=== PATIENT | male | born 1955 | race Caucasian/White ===

== ENCOUNTER 2016-09-02 01:04 | Emergency (ER) | payer BC ==
[2016-09-02 01:20] VITALS: O2SAT 98
[2016-09-02] MEDS ORDERED: ZOFRAN ODT 4 MG PO ONE (01:42)
--- NOTE | 2016-09-02 01:42 | ERPHSYRPT ---
- History of Present Illness Time Seen by Provider: 09/02/16 01:38 Source: patient, family Exam Limitations: no limitations Physician History: pt had brief LOC from hitting back of his head slipping in shower; no blood thinners; tender occiput with swelling and some neck pain with movement; Occurred: just prior to arrival Severity: moderate Head Injury Location: occipital Method of Injury: fell Loss of Consciousness: brief (seconds) Associated Symptoms: nausea Allergies/Adverse Reactions: No Known Drug Allergies Allergy (Unverified 09/02/16 01:42) Home Medications: Metformin HCl 0 mg BID 09/02/16 [History] - Review of Systems Constitutional: No Fever, No Chills Eyes: No Symptoms Ears, Nose, & Throat: No Symptoms Respiratory: No Cough, No Dyspnea Cardiac: No Chest Pain, No Edema, No Syncope Abdominal/Gastrointestinal: No Abdominal Pain, No Nausea, No Vomiting, No Diarrhea Genitourinary Symptoms: No Dysuria Musculoskeletal: Neck Pain, Fall, No Back Pain Skin: Skin Lesions, No Rash Neurological: Headache, No Dizziness, No Focal Weakness, No Sensory Changes Psychological: No Symptoms Endocrine: No Symptoms Hematologic/Lymphatic: No Symptoms Immunological/Allergic: No Symptoms All Other Systems: Reviewed and Negative - Past Medical History Pertinent Past Medical History: No - Nursing Vital Signs Nursing Vital Signs: Initial Vital Signs Temperature 97.9 F Temperature Source Oral Pulse Rate 77 Respiratory Rate 16 Blood Pressure [Right Arm] 158/71 Pain Intensity 7 - Rankin Coma Score Best Eye Response (Amilcar): (4) open spontaneously Best Verbal Response (Amilcar): (5) oriented Best Motor Response (Amilcar): (6) obeys commands Amilcar Total: 15 - Physical Exam General Appearance: no apparent distress, alert Head Injury: contusions, ecchymosis, swelling, tenderness Eye Exam: bilateral eye: PERRL, EOMI ENT Exam: airway nml Neck Exam: trachea midline, muscle spasm, paraspinous muscle tender, pain on movement of neck, tenderness Cardiovascular/Respiratory Exam: chest non-tender, normal breath sounds, regular rate/rhythm Gastrointestinal/Abdominal Exam: soft, non tender, no distention Back Exam: normal inspection, No vertebral tenderness Extremity Exam: non-tender, normal range of motion, normal inspection Mental Status Exam: alert, oriented x 3, cooperative Motor/Sensory Exam: no motor deficit, no sensory deficit, CN II-XII intact Skin Exam: normal color, warm, dry, No rash SpO2: 98 Oxygen Delivery: Room Air - Course Nursing assessment & vital signs reviewed: Yes - CT Exams Head CT Interpretation: Tele-radiologist Report, Fracture Cervical Spine CT Interpretation: Tele-radiologist Report, No Fracture, Other (artifacts per rad DDD/DJD) Ordered Tests: Active Orders 24 hr Category Date Time Status CERVICAL SPINE WO CONTRAST [CT] Stat Exams 09/02/16 01:42 Taken HEAD WITHOUT CONTRAST [CT] Stat Exams 09/02/16 01:42 Taken Medication Summary Discontinued Medications Generic Name Dose Route Start Last Admin Trade Name Freq PRN Reason Stop Dose Admin Ondansetron HCl 4 mg 09/02/16 01:42 09/02/16 01:59 Zofran Odt 4 Mg PO 09/02/16 01:43 4 mg STAT ONE Administration Ondansetron HCl Confirm 09/02/16 01:59 Zofran Odt 4 Mg Administered 09/02/16 02:00 Dose 4 mg .ROUTE .STK-MED ONE Promethazine HCl 50 mg 09/02/16 02:35 09/02/16 03:14 Phenergan 25 Mg Inj IM 09/02/16 02:36 50 mg STAT ONE Administration Promethazine HCl Confirm 09/02/16 03:13 Phenergan 25 Mg Inj Administered 09/02/16 03:14 Dose 50 mg .ROUTE .STK-MED ONE - Progress Progress: improved, re-examined Progress Note: 09/02/16 04:[address] Al and he accepted pt as a trauma 2 Discussed with : Other (Dr Al at [facility] trauma) Will see patient in: hospital (full admit) Counseled pt/family regarding: diagnosis, need for follow-up, rad results - Departure Time of Disposition: 04:21 Departure Disposition: Transfer Clinical Impression: Basilar skull fracture Condition: Good Critical Care Time: No
[2016-09-02] MEDS ORDERED: ZOFRAN ODT 4 MG ONE (01:59)
[2016-09-02] MEDS ORDERED: Phenergan 25 MG INJ IM ONE (02:35)
[2016-09-02] MEDS ORDERED: Phenergan 25 MG INJ ONE (03:13)
[2016-09-02 04:28] VITALS: BP 145/78; PULSE 75
[2016-09-02] MEDS ORDERED: KEFZOL 1 GM/50 ML PREMIX** 1 GM/50 ML IVPB IV STA (04:42)
[2016-09-02] MEDS ORDERED: Sodium Chloride 0.9% 1000 ML 1,000 ML IV SCH (04:45)
--- NOTE | 2016-09-02 08:40 | XRAY ---
Indication: Posterior head injury following fall. Multiple contiguous axial images obtained through the head without contrast. Comparison: None Small posterior scalp hematoma. No acute intracranial hemorrhage, abnormal extra-axial fluid collection, or mass effect. Fourth ventricle is midline without hydrocephalus. Garcia-white matter differentiation maintained. Bony calvarium intact. Left sphenoid sinus fluid leveling. Mastoid air cells are clear. Impression: Posterior scalp hematoma. No underlying fracture or acute intracranial abnormalities. Paranasal sinus disease. Comment: Preliminary interpretation was made by [facility]. No critical discrepancy. CTDI 50.97
--- NOTE | 2016-09-02 08:44 | XRAY ---
Indication: Neck pain following fall. Multiple contiguous axial images obtained through the cervical spine. Sagittal and coronal reformatted images obtained. Comparison: None Several images are slightly degraded by motion artifact. No acute fracture or suspicious bony lesions. There is moderate multilevel degenerative endplate spurring throughout with spinal canal narrowing at the C3-C5 levels. Sagittal and coronal reformatted images demonstrates straightening of the cervical lordosis, positional versus paraspinal muscular spasm. Mild C4-C6 degenerative disc space narrowing. No acute compression fracture, subluxation, or jumped facet. Normal-appearing craniocervical junction. Visualized noncontrasted soft tissues including lung apices are unremarkable. CT head reported separately. Impression: 1. Motion artifact. 2. Negative for gross acute fracture/subluxation. 3. Lordotic straightening, positional versus spasm. 4. Multilevel degenerative disc disease better evaluated with outpatient MRI if clinically warranted. Comment: Preliminary interpretation was made by C. No critical discrepancy. CTDI 116.84
== END 2016-09-02 04:50 | disposition short-term general hospital (02) ==
LOC: ED 01:04
DX: S02.80XD Fracture of other specified skull and facial bones, unspecified side, subsequent encounter for fracture with routine healing (principal); W18.2XXA Fall in (into) shower or empty bathtub, initial encounter
CPT/HCPCS: 36000; 70450; 72125; 96360; 96365; 96372; 99285; J2550; L0172; Q0162